=== PATIENT | female | born 1960 | race Caucasian/White ===

== ENCOUNTER → 2016-09-14 | Outpatient (CLI) | payer MEDICARE, OTHER ==
[~2016-09-14] MED LIST: BUSP10TA23 PO; CARB100C4 PO; ESCI10TA PO; ESCI20TA PO; FLUP10 PO; RISP3 PO; TRIH5TAB2 PO
== END | disposition home or self-care (01) ==
LOC: RADPV 08:19
PROVIDERS: ATTEND Family Medicine
DX: M25.551 Pain in right hip (principal); M25.552 Pain in left hip; R26.2 Difficulty in walking, not elsewhere classified
CPT/HCPCS: 73521